=== PATIENT | male | born 1960 | race Caucasian/White ===

== ENCOUNTER 2018-07-10 10:09 | Emergency (ER) | payer MEDICAID ==
--- NOTE | 2018-07-10 10:21 | ED Physician Documentation ---
PD HPI CHEST PAIN - Stated complaint Stated Complaint: RT ARM PAIN/SOA - Chief complaint Chief Complaint: Cardiac - History obtained from History obtained from: Patient - History of Present Illness Timing - onset: How many hours ago (3 /), Today Timing - onset during: Rest, Emotional event (he was talking on cell phone but was having argument/discussion and started with onset of right biceps area arm pain, worse with arm flexion and full extension, and associated with feeling of dyspnea that developed several minutes later. No chest pain per se.) Timing - duration: Hours (he is still feeling the left anterior upper arm hurting with ROM of the left arm. No pain with breathing.) Timing - details: Abrupt onset, Still present, Waxing and waning Quality: Aching, Pain Location: Left shoulder/arm (the pain was at left biceps/anterior upper arm) Radiation: No: Jaw, Neck, Abdominal Improved by: No: Rest Worsened by: Movement. No: Exertion, Inspiration, Palpation Associated symptoms: Shortness of air, General Weakness. No: Diaphoresis, Nausea, Feeling faint / dizzy, Palpitations Similar symptoms before: Has not had sx before (does have history of anxiety and is not sure if the dyspnea feeling is his anxiety, since he does have some anxiety episodes in the past, but had not had the chest/shoulder pain in the past.) Recently seen: Not recently seen Review of Systems Constitutional: denies: Fever, Chills, Myalgias Nose: denies: Rhinorrhea / runny nose, Congestion Throat: denies: Sore throat Cardiac: denies: Palpitations, Pedal edema, Calf pain Respiratory: denies: Dyspnea, Cough GI: denies: Abdominal Pain, Nausea, Vomiting Skin: denies: Rash, Lesions PD PAST MEDICAL HISTORY - Past Medical History Cardiovascular: None Respiratory: None Neuro: None Endocrine/Autoimmune: None Psych: Anxiety - Present Medications Home Medications: Ambulatory Orders Medication Instructions Recorded Confirmed Naproxen 500 mg PO BID #20 tablet 07/10/18 - Allergies Allergies/Adverse Reactions: Allergies Allergy/AdvReac Type Severity Reaction Status Date / Time No Known Drug Allergies Allergy Verified 07/10/18 10:17 - Family History Family history: reports: CAD PD ED PE NORMAL - Vitals Vital signs reviewed: Yes - General General: Alert and oriented X 3, No acute distress, Well developed/nourished - HEENT HEENT: Atraumatic, PERRL, Pharynx benign - Neck Neck: Supple, no meningeal sign, No adenopathy, No JVD - Cardiac Cardiac: RRR, No murmur - Respiratory Respiratory: Clear bilaterally - Abdomen Abdomen: Soft, Non tender - Derm Derm: Normal color, Warm and dry - Extremities Extremities: Other (left anterior upper arm, at mid biceps area to antecubital area with some muscular tenderness to deeper palpation. Good flexion at elbow against resistence. No noted soft areas of the muscle belly nor tendons. ) Results - Vitals Vitals: Vital Signs - 24 hr 07/10/18 07/10/18 07/10/18 10:11 10:34 10:50 Temperature 36.7 C Heart Rate 40 L 91 95 Respiratory 14 18 18 Rate Blood Pressure 150/95 H 112/95 H O2 Saturation 98 98 98 07/10/18 07/10/18 11:19 11:42 Temperature Heart Rate 91 93 Respiratory 18 18 Rate Blood Pressure 115/80 115/75 O2 Saturation 96 99 Oxygen O2 Source Room air - EKG (time done) 10:22 Rate: Rate (enter#) (68) Rhythm: NSR [place]: Normal Intervals: Normal [place] QRS: Normal Ischemia: Normal ST segments. No: ST elevation c/w ischemia, ST depression - Labs Labs: Laboratory Tests 07/10/18 07/10/18 07/10/18 10:28 10:35 10:35 WBC 8.2 RBC 4.81 Hgb 14.5 Hct 43.1 MCV 89.7 MCH 30.2 MCHC 33.7 RDW 12.8 Plt Count 231 MPV 8.4 Neut # (Auto) 6.4 Lymph # (Auto) 1.0 L [place] # (Auto) 0.6 Eos # (Auto) 0.1 Baso # (Auto) 0.1 Absolute Nucleated RBC 0.01 Nucleated RBC % 0.1 Sodium 135 Potassium 4.0 Chloride 99 L Carbon Dioxide 24 Anion Gap 12.0 BUN 23 H Creatinine 1.1 Estimated GFR (MDRD) 69 L Glucose 270 H Calcium 9.5 Magnesium 2.1 Total Bilirubin 0.8 AST 43 H ALT 26 Alkaline Phosphatase 60 Troponin I Total Protein 8.3 H Albumin 4.4 Globulin 3.9 Albumin/Globulin Ratio 1.1 Lipase 36 07/10/18 10:35 WBC RBC Hgb Hct MCV MCH MCHC RDW Plt Count MPV Neut # (Auto) Lymph # (Auto) [place] # (Auto) Eos # (Auto) Baso # (Auto) Absolute Nucleated RBC Nucleated RBC % Sodium Potassium Chloride Carbon Dioxide Anion Gap BUN Creatinine Estimated GFR (MDRD) Glucose Calcium Magnesium Total Bilirubin AST ALT Alkaline Phosphatase Troponin I < 0.04 Total Protein Albumin Globulin Albumin/Globulin Ratio Lipase - Rads (name of study) chest xray Radiology: Prelim report reviewed, EMP read contemporaneously, See rad report PD MEDICAL DECISION MAKING - ED course Complexity details: reviewed results (normal chest xray. ) Departure - Departure Disposition: Home, Self Care Clinical Impression: Left upper arm pain Condition: Stable Record reviewed to determine appropriate education?: Yes Instructions: ED Strain Muscle Ext Prescriptions: Naproxen 500 mg PO BID #20 tablet Comments: Your EKG, chest x-ray, blood tests appear normal. No signs of heart attack or heart failure process. Presume this is a muscle strain or tendinitis in the biceps/upper arm. Limit activity based on comfort. Use some anti- inflammatories such as naproxen or ibuprofen twice daily for the next 7 to 10 days ([id number] or prescription). Add Tylenol if needed for pain. If you do have exertional chest pain, shortness of breath, other symptoms to more suggest heart related, then please return and be rechecked again. At this point there is no signs of heart disease in your symptoms sound muscular for the arm. Discharge Date/Time: 07/10/18 11:46
[2018-07-10] MEDS ORDERED: LORazepam 2 MG/ML VIAL IVP STA (10:42)
[2018-07-10] MEDS ORDERED: KETOROLAC 30 MG/ML VIAL IVP STA (10:42)
[2018-07-10 10:49] LABS: BASOPHILS # (AUTO) 0.1 10^3/uL (0.0-0.1); BASOPHILS % (AUTO) 0.7 %; EOSINOPHILS # (AUTO) 0.1 10^3/uL (0.0-0.7); EOSINOPHILS % (AUTO) 1.5 %; HGB - HEMOGLOBIN 14.5 g/dL (14.0-18.0); LYMPHOCYTES % (AUTO) 11.8 %; MEAN CORPUSCULAR HEMOGLOBIN 30.2 pg (27.0-31.0); MEAN CORPUSCULAR HGB CONC 33.7 g/dL (32.0-36.0); MEAN CORPUSCULAR VOLUME 89.7 fL (80.0-94.0); MEAN PLATELET VOLUME 8.4 fL (7.4-11.4); MONOCYTES # (AUTO) 0.6 10^3/uL (0.0-1.0); MONOCYTES % (AUTO) 7.2 %; NEUTROPHILS # (AUTO) 6.4 10^3/uL (1.5-6.6); NEUTROPHILS % (AUTO) 78.8 %; PLT - PLATELET COUNT 231 10^3/uL (130-450); RED BLOOD COUNT 4.81 10^6/uL (4.70-6.10); RED CELL DISTRIBUTION WIDTH 12.8 % (12.0-15.0); WHITE BLOOD COUNT 8.2 x10^3/uL (4.8-10.8)
--- NOTE | 2018-07-10 10:54 | XRAY Report ---
Reason: SOB Procedure Date: 07/10/2018 Accession Number: [id number] / [id number] Procedure: XR - Chest 1 View X-Ray CPT Code: 89316 FULL RESULT: EXAM: CHEST RADIOGRAPHY EXAM DATE: 07/10/2018 10:44 AM. CLINICAL HISTORY: SOB. COMPARISON: None. TECHNIQUE: 1 view. FINDINGS: Lungs/Pleura: No focal opacities evident. No pleural effusion. No pneumothorax. Mediastinum: Within exam limitations, the cardiomediastinal contour is normal. Other: None. IMPRESSION: Normal single view chest. RADIA
[2018-07-10 11:01] LABS: ALBUMIN 4.4 g/dL (3.2-5.5); ALBUMIN/GLOBULIN RATIO 1.1 (1.0-2.2); BILIRUBIN,TOTAL 0.8 mg/dL (0.2-1.0); CALCIUM 9.5 mg/dL (8.5-10.3); CREATININE 1.1 mg/dL (0.6-1.2); TOTAL PROTEIN 8.3 g/dL (6.7-8.2)
[2018-07-10 11:43] VITALS: BP 115/75
== END 2018-07-10 11:46 | disposition home or self-care (01) ==
LOC: ED 10:09
DX: M79.622 Pain in left upper arm (principal)
CPT/HCPCS: 36415; 71045; 80053; 83690; 83735; 84484; 85025; 93005; 96374; 99283

== ENCOUNTER 2021-08-24 16:45 | Emergency (ER) | payer MEDICAID, OTHER ==
[2021-08-24 17:01] VITALS: BP 102/77
[2021-08-24 18:44] LABS: BASOPHILS # (AUTO) 0.1 10^3/uL (0.0-0.1); BASOPHILS % (AUTO) 0.8 %; EOSINOPHILS # (AUTO) 0.3 10^3/uL (0.0-0.7); EOSINOPHILS % (AUTO) 3.9 %; HCT - HEMATOCRIT 40.9 % (42.0-52.0); HGB - HEMOGLOBIN 14.3 g/dL (14.0-18.0); LYMPHOCYTES # (AUTO) 1.7 10^3/uL (1.5-3.5); LYMPHOCYTES % (AUTO) 20.2 %; MEAN CORPUSCULAR HEMOGLOBIN 31.6 pg (27.0-31.0); MEAN CORPUSCULAR VOLUME 90.5 fL (80.0-94.0); MONOCYTES # (AUTO) 0.8 10^3/uL (0.0-1.0); MONOCYTES % (AUTO) 9.3 %; NEUTROPHILS # (AUTO) 5.5 10^3/uL (1.5-6.6); NEUTROPHILS % (AUTO) 65.4 %; PLT - PLATELET COUNT 194 10^3/uL (130-450); RED BLOOD COUNT 4.52 10^6/uL (4.70-6.10); RED CELL DISTRIBUTION WIDTH 12.1 % (12.0-15.0); WHITE BLOOD COUNT 8.4 x10^3/uL (4.8-10.8)
[2021-08-24 18:52] LABS: CALCIUM 9.6 mg/dL (8.5-10.3); CREATININE 1.2 mg/dL (0.6-1.2); POTASSIUM 3.9 mmol/L (3.5-5.0)
== END 2021-08-24 22:05 | disposition left against medical advice (07) ==
LOC: ED 16:45
DX: Z53.21 Procedure and treatment not carried out due to patient leaving prior to being seen by health care provider (principal)
CPT/HCPCS: 36415; 80048; 85025

== ENCOUNTER 2021-08-25 12:56 | Emergency (ER) | payer OTHER ==
--- NOTE | 2021-08-25 13:49 | ED Physician Documentation ---
PD HPI SYNCOPE - Stated complaint Stated Complaint: SHAKY,WEAKNESS & DIZZY - Chief complaint Chief Complaint: Neuro - History obtained from History obtained from: Patient - History of Present Illness Witnessed: Witnessed, Unwitnessed Timing - onset: How many weeks ago (has had them in the past 2-3 weeks, about once per day at random times, not patterned with position, activity, eating. Has noted them most often in afternoon or early evening. Will have feeling of warmth, lightheaded and feeling like vision is dimming. No vertigo. No true syncope.) Duration: Minutes (episodes last 30 seconds up to 1-2 minutes and then improve. He has not noted heart rate per se. Has not checked blood sugar nor BP with the episodes.) Preceding symptoms: Vision changes, Light headed, Generalized weakness. No: Headache, Chest pain, Palpitations, Nausea / vomiting Associated symptoms: No: Headache, Chest pain, Nausea / vomiting, Abdominal pain Contributing factors: No: Recent med change (last med change was anxiety med hydroxyzine bid-tid started about a month ago. No increase in dose.), Decreased PO intake (he says he tries to stay hydrated but has not increased amount with the warmer weather.) Review of Systems Constitutional: denies: Fever, Chills Nose: denies: Rhinorrhea / runny nose, Congestion Throat: denies: Sore throat Cardiac: denies: Chest pain / pressure, Palpitations (he has not noted heart rate fast nor irregular but has not taken pulse per se during symptoms.), Pedal edema, Calf pain Respiratory: denies: Cough GI: denies: Abdominal Pain, Nausea, Vomiting, Diarrhea, Bloody / black stool : denies: Dysuria, Frequency Neurologic: reports: Near syncope. denies: Focal weakness, Numbness, Syncope PD PAST MEDICAL HISTORY - Past Medical History Cardiovascular: None Respiratory: None Neuro: None Endocrine/Autoimmune: None Psych: Anxiety - Present Medications Home Medications: Ambulatory Orders Medication Instructions Recorded Confirmed Naproxen 500 mg PO BID #20 tablet 07/10/18 Magnesium Oxide [Mag Ox] 400 mg PO DAILY #14 tablet 08/25/21 - Allergies Allergies/Adverse Reactions: Allergies Allergy/AdvReac Type Severity Reaction Status Date / Time No Known Drug Allergies Allergy Verified 08/25/21 13:09 - Social History Does the pt smoke?: No Smoking Status: Never smoker Does the pt drink ETOH?: No Does the pt have substance abuse?: No PD ED PE NORMAL - Vitals Vital signs reviewed: Yes - General General: Alert and oriented X 3, No acute distress, Well developed/nourished - HEENT HEENT: Moist mucous membranes, Pharynx benign - Neck Neck: Supple, no meningeal sign, No adenopathy - Cardiac Cardiac: RRR, No murmur, No rub - Respiratory Respiratory: No respiratory distress, Clear bilaterally - Abdomen Abdomen: Soft, Non tender, Non distended - Derm Derm: Normal color, Warm and dry - Extremities Extremities: No deformity, No tenderness to palpate, No edema, No calf tende rness / cord - Neuro Neuro: Alert and oriented X 3, No motor deficit, No sensory deficit, Normal speech Eye Opening: Spontaneous Motor: Obeys Commands Verbal: Oriented GCS Score: 15 - Psych Psych: Normal mood, Normal affect Results - Vitals Vitals: Vital Signs - 24 hr 08/25/21 08/25/21 08/25/21 13:09 13:40 13:50 Temperature 36.2 C L Heart Rate 80 80 78 Respiratory 18 21 25 H Rate Blood Pressure 137/68 H 155/120 H 127/88 H O2 Saturation 98 95 97 08/25/21 08/25/21 08/25/21 14:00 14:47 15:44 Temperature Heart Rate 75 4 L 76 Respiratory 18 18 24 Rate Blood Pressure 118/68 123/76 123/63 O2 Saturation 96 76 L 95 Oxygen O2 Source Room air - EKG (time done) 15:01 Rate: Rate (enter#) (76) Rhythm: NSR [place]: Normal Intervals: Normal [place] QRS: Normal Ischemia: Normal ST segments. No: ST elevation c/w ischemia, ST depression - Labs Labs: Laboratory Tests 08/25/21 08/25/21 08/25/21 13:45 13:45 13:45 WBC RBC Hgb Hct MCV MCH MCHC RDW Plt Count MPV Neut # (Auto) Lymph # (Auto) [place] # (Auto) Eos # (Auto) Baso # (Auto) Absolute Nucleated RBC Nucleated RBC % Sodium Potassium Chloride Carbon Dioxide Anion Gap BUN Creatinine Estimated GFR (MDRD) Glucose Calcium Magnesium 1.6 L Total Bilirubin AST ALT Alkaline Phosphatase Troponin I High Sens 4.5 B-Natriuretic Peptide 23 Total Protein Albumin Globulin Albumin/Globulin Ratio TSH 08/25/21 08/25/21 08/25/21 13:45 13:46 13:46 WBC 7.8 RBC 4.62 L Hgb 14.8 Hct 42.2 MCV 91.3 MCH 32.0 H MCHC 35.1 RDW 12.1 Plt Count 213 MPV 10.1 Neut # (Auto) 5.4 Lymph # (Auto) 1.3 L [place] # (Auto) 0.7 Eos # (Auto) 0.3 Baso # (Auto) 0.1 Absolute Nucleated RBC 0.00 Nucleated RBC % 0.0 Sodium 130 L Potassium 4.1 Chloride 91 L Carbon Dioxide 26 Anion Gap 13.0 BUN 22 H Creatinine 1.2 Estimated GFR (MDRD) 62 L Glucose 347 H Calcium 10.0 Magnesium Total Bilirubin 0.8 AST 37 ALT 28 Alkaline Phosphatase 52 Troponin I High Sens B-Natriuretic Peptide Total Protein 8.1 Albumin 4.5 Globulin 3.6 Albumin/Globulin Ratio 1.3 TSH 0.96 - Rads (name of study) chest xray Radiology: Prelim report reviewed (no acute cardiopulmonary process), See rad report PD MEDICAL DECISION MAKING - ED course Complexity details: reviewed results, re-evaluated patient (of course, no episodes of symptoms occured while in the ER. Will have him check blood sugar and pulse with episode, and BP if at home during one. Otherwise would suggest PCP arrange HOlter/Ziopatch type heart monitor. ), considered differential (symptoms sound cardiovascular or glucose with near syncopal symptoms. No vertigo, trouble speaking, nor focal weaknesses to suggest cerebrovascular, and no altered mentation/fall to suggest seizure. Symptoms brief and then improve, so major considerations for drop in BP, blood sugar, or HR change.), d/w patient Departure - Departure Disposition: Home, Self Care Clinical Impression: Pre-syncope, Episodic lightheadedness, Hypomagnesemia Condition: Stable Record reviewed to determine appropriate education?: Yes Instructions: ED Near Syncope Unkn Follow-Up: PRASANNA LUNA DO [Primary Care Provider] - Prescriptions: Magnesium Oxide [Mag Ox] 400 mg PO DAILY #14 tablet Comments: Your EKG and vital signs are normal here. Your blood test did not show any signs of heart muscle injury or heart failure. Your electrolytes, kidney function and liver function are normal with the exception of a minimally low magnesium level. Consider magnesium supplement daily for a week or 2. Stay well-hydrated. Your heart rhythm has been normal here. Of course she did not have any of the lightheaded episodes. Follow-up with your primary care as I would suggest you have a heart monitor test that would record your rhythm over 3 to 7 days or so and see if your episodes are associated with abnormal heart rhythms. I would also suggest checking your blood sugar close in time to the episodes and see if its associated with too low of a blood sugar. And if you are able to check blood pressure around one of the episodes to evaluate for transient low blood pressure. Return if more prolonged symptoms or associated with actual fainting, chest pain, shortness of breath or other concerns. Discharge Date/Time: 08/25/21 15:49
[2021-08-25 13:53] LABS: BASOPHILS # (AUTO) 0.1 10^3/uL (0.0-0.1); BASOPHILS % (AUTO) 0.9 %; EOSINOPHILS # (AUTO) 0.3 10^3/uL (0.0-0.7); EOSINOPHILS % (AUTO) 3.3 %; HCT - HEMATOCRIT 42.2 % (42.0-52.0); HGB - HEMOGLOBIN 14.8 g/dL (14.0-18.0); LYMPHOCYTES # (AUTO) 1.3 10^3/uL (1.5-3.5); LYMPHOCYTES % (AUTO) 17.1 %; MEAN CORPUSCULAR HGB CONC 35.1 g/dL (32.0-36.0); MEAN CORPUSCULAR VOLUME 91.3 fL (80.0-94.0); MEAN PLATELET VOLUME 10.1 fL (7.4-11.4); MONOCYTES # (AUTO) 0.7 10^3/uL (0.0-1.0); MONOCYTES % (AUTO) 9.3 %; NEUTROPHILS # (AUTO) 5.4 10^3/uL (1.5-6.6); NEUTROPHILS % (AUTO) 68.9 %; PLT - PLATELET COUNT 213 10^3/uL (130-450); RED BLOOD COUNT 4.62 10^6/uL (4.70-6.10); RED CELL DISTRIBUTION WIDTH 12.1 % (12.0-15.0); WHITE BLOOD COUNT 7.8 x10^3/uL (4.8-10.8)
[2021-08-25 14:13] LABS: ALBUMIN 4.5 g/dL (3.2-5.5); ALBUMIN/GLOBULIN RATIO 1.3 (1.0-2.2); BILIRUBIN,TOTAL 0.8 mg/dL (0.2-1.0); CREATININE 1.2 mg/dL (0.6-1.2); POTASSIUM 4.1 mmol/L (3.5-5.0); TOTAL PROTEIN 8.1 g/dL (6.7-8.2)
--- NOTE | 2021-08-25 14:50 | XRAY Report ---
PROCEDURE: Chest 1 View X-Ray INDICATIONS: chest pain TECHNIQUE: One view of the chest was acquired. COMPARISON: CXR 07/10/2018. FINDINGS: Surgical changes and devices: None. Lungs and pleura: No pleural effusions or pneumothorax. Hazy opacity at the lung bases. No consolida tion. Mediastinum: Mediastinal contours appear normal. Heart size is normal. Bones and chest wall: No suspicious bony lesions. Overlying soft tissues appear unremarkable. IMPRESSION: Bibasilar hazy opacity. Favor atelectasis over pneumonia. Reviewed by: Kin Granado MD on 08/25/2021 2:49 PM PDT Approved by: Kin Granado MD on 08/25/2021 2:49 PM PDT Station ID: [id number]
[2021-08-25 15:45] VITALS: BP 123/63
== END 2021-08-25 15:49 | disposition home or self-care (01) ==
LOC: ED 12:56
DX: R55 Syncope and collapse (principal); R42 Dizziness and giddiness; E83.42 Hypomagnesemia
CPT/HCPCS: 36415; 80053; 83735; 83880; 84443; 84484; 85025; 93005; 99284